=== PATIENT | female | born 1995 | race Caucasian/White ===

== ENCOUNTER 2021-12-07 00:12 | Inpatient (IN) | payer OTHER ==
[~2021-12-07] VITALS: Ht 152.4 cm; Wt 2.7 kg
[2021-12-07] MEDS ORDERED: PRENATAL TABLE1 EAC3 PO (00:19)
[2021-12-07] MEDS ORDERED: ECOTRIN81 MG PO (00:19)
== END 2021-12-13 10:13 | disposition left against medical advice (07) | DRG 788 ==
LOC: OBS/DEL 00:12 → LDR 19:53 → OB/GYN 12-09 02:37
PROVIDERS: ADMIT Obstetrics & Gynecology; ATTEND Obstetrics & Gynecology
PROC: 4A1HXCZ Monitoring of Products of Conception, Cardiac Rate, External Approach (ICD-10-PCS; 2021-12-07)
PROC: BT43ZZZ Ultrasonography of Bilateral Kidneys (ICD-10-PCS; 2021-12-07)
PROC: 3E033VJ Introduction of Other Hormone into Peripheral Vein, Percutaneous Approach (ICD-10-PCS; 2021-12-09)
PROC: 3E0P7VZ Introduction of Hormone into Female Reproductive, Via Natural or Artificial Opening (ICD-10-PCS; 2021-12-09)
PROC: 10D00Z1 Extraction of Products of Conception, Low, Open Approach (ICD-10-PCS; principal; 2021-12-09 00:30)
DX: O61.0 Failed medical induction of labor (principal); O36.5930 Maternal care for other known or suspected poor fetal growth, third trimester, not applicable or unspecified; O26.893 Other specified pregnancy related conditions, third trimester; N20.0 Calculus of kidney; Z3A.39 39 weeks gestation of pregnancy; Z37.0 Single live birth; Z20.822 Contact with and (suspected) exposure to COVID-19